=== PATIENT | female | born 2000 | race Two or more races ===

== ENCOUNTER 2023-09-22 10:20 | Inpatient (IN) ==
[2023-09-22] MEDS ORDERED: Lidocaine 1% VIAL 10 MG/ML 30 ML VIAL INJ PRN (11:16)
[2023-09-22 12:13] LABS: ABS Lymphocytes 2.1 10^3/uL (1.0-4.8); ABS Monocytes 0.7 10^3/uL (0.0-0.9); ABS Neutrophils 7.8 10^3/uL (1.5-7.6); ABS Nucleated RBC 0.01 10^3/ul; Eosinophil % 0.2 %; Hematocrit 34.6 % (35-45); Hemoglobin 11.2 g/dL (11.5-14.3); Lymphocyte % 19.8 %; Mean Corpuscular Hemoglobin 25.4 pg (27-33); Mean Corpuscular Hgb Conc 32.3 g/dL (31-36); Mean Corpuscular Volume 78.6 fL (80-97); Mean Platelet Volume 9.7 fL (7.5-11.2); Nucleated Red Blood Cells % 0.1 %/100WBC (0.0-0.8); Platelet Count 192 10^3/uL (150-450); Red Cell Distribution Width 16.6 % (12-17); White Blood Count 10.7 10^3/uL (3.8-11.8)
[2023-09-22 12:30] LABS: Urine Benzodiazepine Screen None Detected (None Detect); Urine Cannabinoids Screen Presumptive Positive (None Detect); Urine Opiates Screen None Detected (None Detect)
[2023-09-22] MEDS: Lactated Ringers 1000 ml BAG 1,000 ML IV ONE (13:03)
[2023-09-22] MEDS ORDERED: OBEPIDURAL (200 ML) 200 ML EPIDURAL ONE (13:06)
[2023-09-22] MEDS ORDERED: Lidocaine 1.5% EPI 1:200,000 30 ML SDV ONE (13:06)
[2023-09-22] MEDS: OBEPIDURAL (200 ML) 200 ML EPIDURAL SCH (13:32)
[2023-09-22] MEDS ORDERED: Lactated Ringers 1000 ml BAG 1,000 ML IV ONE (15:15)
[2023-09-22] MEDS ORDERED: Sodium Citrate/Citric Acid LIQ 15 ML UDC PO PRN (15:15)
[2023-09-22] MEDS ORDERED: Phenylephrine 40 mcg/mL 10mL (400mcg) SYRINGE IV PUSH PRN ×2 (15:15)
[2023-09-22] MEDS ORDERED: Oxytocin in LR 20,000 MILLI.UNIT/1,000 ML BAG IV ONE (15:49)
[2023-09-22] MEDS ORDERED: Lactated Ringers 1000 ml BAG 1,000 ML IV SCH ×2 (16:00→17:00)
[2023-09-22] MEDS ORDERED: Oxytocin in LR 20,000 MILLI.UNIT/1,000 ML BAG IV SCH (16:05)
[2023-09-23 07:53] LABS: ABS Eosinophils 0.1 10^3/uL (0.0-0.5); ABS Monocytes 1.2 10^3/uL (0.0-0.9); ABS Neutrophils 9.9 10^3/uL (1.5-7.6); ABS Nucleated RBC 0.01 10^3/ul; Eosinophil % 0.4 %; Hematocrit 29.1 % (35-45); Hemoglobin 9.3 g/dL (11.5-14.3); Lymphocyte % 15.2 %; Mean Corpuscular Volume 78.2 fL (80-97); Mean Platelet Volume 9.6 fL (7.5-11.2); Nucleated Red Blood Cells % 0.1 %/100WBC (0.0-0.8); Platelet Count 172 10^3/uL (150-450); Red Blood Count 3.72 10^6/uL (3.63-4.92); Red Cell Distribution Width 16.3 % (12-17); White Blood Count 13.2 10^3/uL (3.8-11.8)
[2023-09-24] MEDS: Dibucaine 1% OINT 28.35 GM TUBE PR PRN (07:52)
[2023-09-24] MEDS: Witch Hazel PAD JAR TOPICAL PRN (07:52)
[2023-09-24 08:31] VITALS: BP 124/64
== END 2023-09-24 12:30 | disposition home or self-care (01) | DRG 560 ==
LOC: MCHOBOUT 10:20 → MCHOB 11:31
PROVIDERS: ADMIT Midwife; ATTEND Midwife